=== PATIENT | female | born 1985 | race Caucasian/White ===

== ENCOUNTER 2016-02-20 18:24 | Emergency (ER) | payer OTHER ==
[~2016-02-20 18:24] MED LIST: ADVI200T PO; ANUS2.5C2 PN; AVIATAB PO; COLA100C PO; TYLE167L PO
[2016-02-20] MEDS ORDERED: ASPIRIN 81 MG CHEW TABLET As Ordered ONE (21:01)
[2016-02-20 21:32] LABS: BASO # 0.1 K/mm3 (0.0-0.2); BASO % 1.5 % (0.0-1.0); EOS # 0.2 K/mm3 (0.0-0.50); EOS % 2.3 % (0.0-3.0); LARGE UNSTAINED CELL # 0.1 K/mm3 (0.0-0.4); LARGE UNSTAINED CELL % 1.4 % (0.0-4.0); LYMPH # 1.7 K/mm3 (1.5-4.5); LYMPH % 21.7 % (24.0-44.0); MEAN CORPUSCULAR HEMOGLOBIN 29.6 pg (27.0-33.0); MEAN CORPUSCULAR HGB CONC 33.9 g/dl (32.0-36.5); MEAN CORPUSCULAR VOLUME 87.5 fl (80.0-96.0); MONO # 0.3 K/mm3 (0.0-0.8); MONO % 4.5 % (0.0-5.0); NEUTROPHILS # 5.1 K/mm3 (1.8-7.7); NEUTROPHILS % 68.5 % (36.0-66.0); PLATELET COUNT, AUTOMATED 217 k/mm3 (150-450); RED CELL DISTRIBUTION WIDTH 12.7 % (11.5-14.5); WHITE BLOOD COUNT 7.5 K/mm3 (4.0-10.0)
[2016-02-20 22:23] LABS: ANION GAP 8 MEQ/L (8-16); BLOOD UREA NITROGEN 13 MG/DL (7-18); CALCIUM LEVEL 9.2 MG/DL (8.5-10.1); CARBON DIOXIDE LEVEL 27 MEQ/L (21-32); CHLORIDE LEVEL 108 MEQ/L (98-107); GLOMERULAR FILTRATION RATE > 60.0 (>60); GLUCOSE, FASTING 100 MG/DL (70-105); SODIUM LEVEL 143 MEQ/L (136-145)
--- NOTE | 2016-02-20 22:55 | EDDOCDS ---
Physician Documentation [facility] Name: Angelique Carrillo Age: 30 yrs Sex: Female : 1985 Arrival Date: 02/20/2016 Time: 18:24 Bed 7 Private MD: Kimberly Díaz Disposition: 02/20/16 22:32 Discharged to Home/Self Care. Impression: Gastro-esophageal reflux disease, Radiculopathy, cervical region. - Condition is Stable. - Discharge Instructions: Cervical Radiculopathy, Gastroesophageal Reflux Disease, Adult. - Prescriptions for Prilosec 20 mg Oral Capsule - take 1 capsule by ORAL route once daily; 10 capsule. - Medication Reconciliation, Local Pharmacy Hours form. - Follow up: Kimberly Díaz; When: 4 - 5 days; Reason: Recheck today's complaints, Continuance of care. - Problem is an ongoing problem. - Symptoms are unchanged. Historical: - Allergies: Augmentin; - Home Meds: 1. Macrobid 100 mg Oral cap 1 cap every 12 hours 2. BCP once daily - PMHx: none; - PSHx: Tonsillectomy; - Social history: Smoking status: Patient states was never smoker of tobacco. No barriers to communication noted, The patient speaks fluent Comoran, Speaks appropriately for age. - Family history: Not pertinent. - : The pt / caregiver states he / she is not on anticoagulants. Home medication list is obtained from the patient. - Exposure Risk Screening:: None identified. 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 10 in. (177.80 cm); Pain 4/10; 21:00 BP 163 / 78 (auto/); jp6 21:01 Pulse 76 MON; Pulse Ox 97% ; jp6 21:14 BP 157 / 79 (auto/); jp6 21:14 Pulse 78 MON; Pulse Ox 97% ; jp6 21:29 BP 167 / 78 (auto/); jp6 21:29 Pulse 70 MON; Pulse Ox 98% ; jp6 21:44 BP 167 / 100 (auto/); jp6 21:44 Pulse 74 MON; Pulse Ox 97% ; jp6 21:59 BP 165 / 90 (auto/); jp6 21:59 Pulse 74 MON; Pulse Ox 97% ; jp6 22:14 BP 160 / 74 (auto/); jp6 22:14 Pulse 72 MON; Pulse Ox 98% ; jp6 22:26 Pulse 78 MON; Pulse Ox 97% ; jp6 22:41 BP 142 / 80 (auto/); jp6 18:25 Body Mass Index 30.85 (97.52 kg, 177.80 cm) dem1 MDM: 18:31 ECG WITH READING ER PHYS+CARDIAG ordered. EDMS 20:39 Aspirin Chewable Tablet 324 mg PO once ordered. ke 20:39 Proctologist/Pulse Ox/q 30 min VS ordered. ke 20:39 IV Saline Lock ordered. ke 20:39 Rhythm Strip to chart ordered. ke 20:40 Basic Metabolic Profile Ordered. EDMS 20:40 CBC with Diff Ordered. EDMS 20:40 Cardiac Injury Profile Ordered. EDMS 20:40 Troponin Ordered. EDMS 20:41 Chest, 2 View (pa\E\lat) Ordered. EDMS 20:56 Financial registration complete. zo 21:15 [facility] Payment Agreement was scanned into [employer] and attached to record. zo 22:09 CBC with Diff Reviewed. ke 22:30 Basic Metabolic Profile Reviewed. ke 22:30 Cardiac Injury Profile Reviewed. ke 22:30 Troponin Reviewed. ke Administered Medications: 21:15 Drug: Aspirin 324 mg [aspirin 81 mg chewable tablet (4 tabs)] Route: PO; jp6 Signatures: Dispatcher [employer] EDMS Jose Wilder, Chantel Ken,RN RN kr3 Javier Garrison Jessica,RN RN jp6 The chart was reviewed and I authenticate all verbal orders and agree with the evaluation and treatment provided.Attachments: 21:15 [facility] zo MTDD
--- NOTE | 2016-02-20 22:56 | EDDOCDS ---
Nurse's Notes [facility] Name: Angelique Carrillo Age: 30 yrs Sex: Female : 1985 Arrival Date: 02/20/2016 Time: 18:24 Bed 7 Private MD: Kimberly Díaz Diagnosis: Gastro-esophageal reflux disease;Radiculopathy, cervical region Presentation: 02/19 18:31 Presenting complaint: Patient states: right arm heaviness since 5PM. Reports kr3 indigestion all day until took Zantac at 2:30. Adult Sepsis Screening: The patient does not have new or worsening altered mentation. Patient's respiratory rate is less than 22. Systolic blood pressure is greater than 100. Patient has a qSOFA score of 0- Negative Sepsis Screen. Suicide/Homicide risk assessment- the patient denies having any suicidal and/or homicidal ideations and does not present with any other emotional, behavioral or mental health complaints. 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 Transition of care: patient was not received from another setting of care. 18:31 Method Of Arrival: Walkin/Carried/Asstd kr3 18:43 Acuity: RUT Level 3 kr3 Triage Assessment: 18:33 General: Appears in no apparent distress, comfortable, Behavior is cooperative. Pain: kr3 Location: right arm Pain currently is 4 out of 10 on a pain scale. Quality of pain is described as heavy. Pt Declines HIV testing. Neurological: Level of Consciousness is awake, alert. Respiratory: Respiratory effort is even, unlabored. GI: Reports indigestion on and off all day after eating donuts. Derm: Skin is pink, warm & dry. 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 Macrobid 100 mg Oral cap 1 cap every 12 hours 2. BCP once daily - PMHx: none; - PSHx: Tonsillectomy; - Social history: Smoking status: Patient states was never smoker of tobacco. No barriers to communication noted, The patient speaks fluent Bulgarian, Speaks appropriately for age. - Family history: Not pertinent. - : The pt / caregiver states he / she is not on anticoagulants. Home medication list is obtained from the patient. - Exposure Risk Screening:: None identified. Screenin:29 Screening information is obtained from the patient. Fall risk: No risks identified. ck1 Assistance ADL's: requires no assistance with activities of daily living. Abuse/DV Screen: The patient / caregiver reports he/she is: not in a situation that causes fear, pain or injury. Nutritional screening: No deficits noted. Advance Directives: Currently, there is no health care proxy. home support is adequate. Assessment: 20:28 General: Numbness, tingling and aching to right arm has resolved, denies pain at this ck1 time. No acute distress noted at this time. 21:30 Reassessment: Patient appears in no apparent distress at this time. Patient denies pain jp6 at this time. General: Appears in no apparent distress, comfortable, Behavior is appropriate for age, cooperative. Pain: Denies pain. Neurological: No deficits noted. Level of Consciousness is awake, alert, Oriented to person, place, time. EENT: No deficits noted. Cardiovascular: No deficits noted. Capillary refill < 3 seconds Heart tones S1 S2 present Rhythm is sinus rhythm No ectopy. Respiratory: Airway is patent Respiratory effort is even, unlabored, Respiratory pattern is regular, symmetrical, Breath sounds are clear bilaterally. GI: No deficits noted. : No deficits noted. Derm: Skin is pink, warm & dry. Musculoskeletal: No deficits noted. 21:30 Reassessment: Patient denies pain at this time. Patient states feeling better. Patient jp6 states symptoms have improved. Pain: Denies pain. Cardiovascular: Capillary refill < 3 seconds Rhythm is sinus rhythm No ectopy. Respiratory: Airway is patent Breath sounds are clear bilaterally. Derm: Skin is pink, warm & dry. Vital Signs: 18:25 BP 174 / 85; Pulse 75; Resp 18; Temp 97.8(O); Pulse Ox 100% on R/A; Weight 97.52 kg; dem1 Height 5 ft. 10 in. (177.80 cm); Pain 4/10; 21:00 BP 163 / 78 (auto/); jp6 21:01 Pulse 76 MON; Pulse Ox 97% ; jp6 21:14 BP 157 / 79 (auto/); jp6 21:14 Pulse 78 MON; Pulse Ox 97% ; jp6 21:29 BP 167 / 78 (auto/); jp6 21:29 Pulse 70 MON; Pulse Ox 98% ; jp6 21:44 BP 167 / 100 (auto/); jp6 21:44 Pulse 74 MON; Pulse Ox 97% ; jp6 21:59 BP 165 / 90 (auto/); jp6 21:59 Pulse 74 MON; Pulse Ox 97% ; jp6 22:14 BP 160 / 74 (auto/); jp6 22:14 Pulse 72 MON; Pulse Ox 98% ; jp6 22:26 Pulse 78 MON; Pulse Ox 97% ; jp6 22:41 BP 142 / 80 (auto/); jp6 18:25 Body Mass Index 30.85 (97.52 kg, 177.80 cm) [facility] Vitals: 18:25 Log In Time: February 20, 2016 at 18:23. RN notified that patient meets Red Flag [facility] criteria. ED Course: 18:25 Patient visited by Hernán Cruz. dem1 18:25 Kimberly Díaz is Private Physician. dem1 18:25 Patient moved to Waiting dem1 18:29 Patient moved to Pre RCE dem1 18:43 Triage Initiated kr3 19:23 EKG done. (by ED staff). Reviewed by Carol Ann Arias MD. rn1 20:28 Patient visited by Fauzia Pereyra,JOSE. ck1 20:28 Patient moved to Triage 3 ck1 20:29 Mg Woodall DO is Attending Physician. cs11 20:29 Patient visited by Mg Woodall DO. cs11 20:29 Jose Wilder FNP is PHCP. ke 20:29 Patient visited by Jose Wilder FNP. ke 20:29 Patient moved to 7 jmb 20:47 Jazmin Bryant,RN is Primary Nurse. jp6 21:01 Patient visited by Jose Wilder FNP. ke 21:15 [facility] Payment Agreement was scanned into [employer] and attached to record. zo 21:28 Patient visited by Jose Wilder FNP. ke 21:56 Patient visited by Jose Wilder FNP. ke 22:19 Patient visited by Jose Wilder FNP. ke 22:26 The patient / caregiver is instructed regarding the plan of care and ED course. Cardiac jp6 monitor on. Pulse ox on. NIBP on. 22:26 Inserted saline lock: 20 gauge in right antecubital area and blood collected. No jp6 procedures done that require assistance. 22:26 Discontinued lock bleeding controlled, pressure dressing applied, No redness/swelling jp6 at site. 22:31 Kimberly Díaz is Referral Physician. ke Administered Medications: 21:15 Drug: Aspirin 324 mg [aspirin 81 mg chewable tablet (4 tabs)] Route: PO; jp6 Order Results: Lab Order: Basic Metabolic Profile; SPEC'M 02/20/16 21:50 Test: GLUCOSE, FASTING; Value: 100; Range: 70-105; Units: MG/DL; Status: F Test: BLOOD UREA NITROGEN; Value: 13; Range: 7-18; Units: MG/DL; Status: F Test: CREATININE FOR GFR; Value: 0.80; Range: 0.55-1.02; Units: MG/DL; Status: F Test: GLOMERULAR FILTRATION RATE; Value: > 60.0; Range: >60; Status: F Test: SODIUM LEVEL; Value: 143; Range: 136-145; Units: MEQ/L; Status: F Test: POTASSIUM SERUM; Value: 4.0; Range: 3.5-5.1; Units: MEQ/L; Status: F Test: CHLORIDE LEVEL; Value: 108; Range: 98-107; Abnormal: Above high normal; Units: MEQ/L; Status: F Test: CARBON DIOXIDE LEVEL; Value: 27; Range: 21-32; Units: MEQ/L; Status: F Test: ANION GAP; Value: 8; Range: 8-16; Units: MEQ/L; Status: F Test: CALCIUM LEVEL; Value: 9.2; Range: 8.5-10.1; Units: MG/DL; Status: F Test Note: ; Units are mL/min/1.73 m2 Chronic Kidney Disease Staging per NKF: Stage I & II GFR >=60 Normal to Mildly Decreased Stage III GFR 30-59 Moderately Decreased Stage IV GFR 15-29 Severely Decreased Stage V GFR <15 Very Little GFR Left ESRD GFR <15 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 Lab Order: CBC with Diff; SPEC'M 02/20/16 21:14 Test: WHITE BLOOD COUNT; Value: 7.5; Range: 4.0-10.0; Units: K/mm3; Status: F Test: RED BLOOD COUNT; Value: 4.75; Range: 4.00-5.40; Units: M/mm3; Status: F Test: HEMOGLOBIN; Value: 14.1; Range: 12.0-16.0; Units: g/dl; Status: F Test: HEMATOCRIT; Value: 41.6; Range: 36.0-47.0; Units: %; Status: F Test: MEAN CORPUSCULAR VOLUME; Value: 87.5; Range: 80.0-96.0; Units: fl; Status: F Test: MEAN CORPUSCULAR HEMOGLOBIN; Value: 29.6; Range: 27.0-33.0; Units: pg; Status: F Test: MEAN CORPUSCULAR HGB CONC; Value: 33.9; Range: 32.0-36.5; Units: g/dl; Status: F Test: RED CELL DISTRIBUTION WIDTH; Value: 12.7; Range: 11.5-14.5; Units: %; Status: F Test: PLATELET COUNT, AUTOMATED; Value: 217; Range: 150-450; Units: k/mm3; Status: F Test: NEUTROPHILS %; Value: 68.5; Range: 36.0-66.0; Abnormal: Above high normal; Units: %; Status: F Test: LYMPH %; Value: 21.7; Range: 24.0-44.0; Abnormal: Below low normal; Units: %; Status: F Test: MONO %; Value: 4.5; Range: 0.0-5.0; Units: %; Status: F Test: EOS %; Value: 2.3; Range: 0.0-3.0; Units: %; Status: F Test: BASO %; Value: 1.5; Range: 0.0-1.0; Abnormal: Above high normal; Units: %; Status: F Test: LARGE UNSTAINED CELL %; Value: 1.4; Range: 0.0-4.0; Units: %; Status: F Test: NEUTROPHILS #; Value: 5.1; Range: 1.8-7.7; Units: K/mm3; Status: F Test: LYMPH #; Value: 1.7; Range: 1.5-4.5; Units: K/mm3; Status: F Test: MONO #; Value: 0.3; Range: 0.0-0.8; Units: K/mm3; Status: F Test: EOS #; Value: 0.2; Range: 0.0-0.50; Units: K/mm3; Status: F Test: BASO #; Value: 0.1; Range: 0.0-0.2; Units: K/mm3; Status: F Test: LARGE UNSTAINED CELL #; Value: 0.1; Range: 0.0-0.4; Units: K/mm3; Status: F Lab Order: Cardiac Injury Profile; SPEC'M 02/20/16 21:50 Test: CPK CREATINE PHOSPHOKINASE; Value: 67; Range: 26-192; Units: U/L; Status: F Test: CK-MB VALUE MASS; Value: 1.0; Range: 0.0-3.6; Units: NG/ML; Status: F Test: MB/CK RELATIVE INDEX; Value: 1.49; Range: < OR =4; Status: F Test Note: ; DIAGNOSIS CRITERIA MMB ng/ml Relative Index (RI) NON-AMI < or = 5 N/A [place] > 5 < or = 4 AMI > 5 > 4 Lab Order: Troponin; SPEC'M 02/20/16 21:50 Test: TROPONIN I; Value: < 0.02; Range: < 0.10; Units: NG/ML; Status: F Test Note: ; Troponin I Reference Interval for Preclick LOCI: 99th Percentile= 0.00-0.045 ng/ml Risk Stratification: <= 0.10 ng/ml Decreased Risk for Adverse Clinical Events. 0.10-1.50 ng/ml Increased Risk for Adverse Clinical Events. Evaluation of additional criterion and/or repeat testing in 2-6 hours is suggested to rule out myocardial damage. >= 1.50 ng/ml Indicative of Myocardial Injury. Outcome: 22:26 Discharge Assessment: Patient patient administered narcotics - no. The following High jp6 Risk Discharge criteria are identified: None. Discharged to home ambulatory, with parent. Admitted. Condition: good. Discharge instructions given to patient, Instructed on discharge instructions, follow up and referral plans. medication usage, Demonstrated understanding of instructions, medications, Pt was receptive of discharge instructions/ teaching. Prescriptions given X 1. No special radiology studies were completed. Property sent home with patient. 22:32 Discharge ordered by Provider. ke 22:54 Patient left the ED. jp6 Signatures: Jose Wilder, CHILD CARE COOK CHILD CARE COOK Fauzia Headley,RN RN ck1 Chantel Banks,RN RN kr3 Javier Garrison Demeishia dem1 Mg Woodall, DO cs11 Giacomo Santana,RN RN ishaanb Marcio Paez rn1 Jazmin Bryant RN RN jp6 MTDD
--- NOTE | 2016-02-20 23:08 | REP ---
Clinical: Chest pain . Comparison: None . Technique: PA and lateral. Findings: The mediastinum and cardiac silhouette are normal. The lung green are clear and without acute consolidation, effusion, or pneumothorax. The skeletal structures are intact and normal. Impression: 1. No acute cardiopulmonary process. Signed by Cj Mata MD 02/20/2016 10:59 P
--- NOTE | 2016-02-22 08:21 | ECGEPIP ---
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
--- NOTE | 2016-02-22 23:56 | EDDOCDS ---
Physician Documentation [facility] Name: Angelique Carrillo Age: 30 yrs Sex: Female : 1985 Arrival Date: 02/20/2016 Time: 18:24 Bed 7 Private MD: Kimberly Díaz Disposition: 02/20/16 22:32 Discharged to Home/Self Care. Impression: Gastro-esophageal reflux disease, Radiculopathy, cervical region. - Condition is Stable. - Discharge Instructions: Cervical Radiculopathy, Gastroesophageal Reflux Disease, Adult. - Prescriptions for Prilosec 20 mg Oral Capsule - take 1 capsule by ORAL route once daily; 10 capsule. - Medication Reconciliation, Local Pharmacy Hours form. - Follow up: Kimberly Díaz; When: 4 - 5 days; Reason: Recheck today's complaints, Continuance of care. - Problem is an ongoing problem. - Symptoms are unchanged. Historical: - Allergies: Augmentin; - Home Meds: 1. Macrobid 100 mg Oral cap 1 cap every 12 hours 2. BCP once daily - PMHx: none; - PSHx: Tonsillectomy; - Social history: Smoking status: Patient states was never smoker of tobacco. No barriers to communication noted, The patient speaks fluent Greenlandic, Speaks appropriately for age. - Family history: Not pertinent. - : The pt / caregiver states he / she is not on anticoagulants. Home medication list is obtained from the patient. - Exposure Risk Screening:: None identified. 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 10 in. (177.80 cm); Pain 4/10; 21:00 BP 163 / 78 (auto/); jp6 21:01 Pulse 76 MON; Pulse Ox 97% ; jp6 21:14 BP 157 / 79 (auto/); jp6 21:14 Pulse 78 MON; Pulse Ox 97% ; jp6 21:29 BP 167 / 78 (auto/); jp6 21:29 Pulse 70 MON; Pulse Ox 98% ; jp6 21:44 BP 167 / 100 (auto/); jp6 21:44 Pulse 74 MON; Pulse Ox 97% ; jp6 21:59 BP 165 / 90 (auto/); jp6 21:59 Pulse 74 MON; Pulse Ox 97% ; jp6 22:14 BP 160 / 74 (auto/); jp6 22:14 Pulse 72 MON; Pulse Ox 98% ; jp6 22:26 Pulse 78 MON; Pulse Ox 97% ; jp6 22:41 BP 142 / 80 (auto/); jp6 18:25 Body Mass Index 30.85 (97.52 kg, 177.80 cm) dem1 MDM: 18:31 ECG WITH READING ER PHYS+CARDIAG ordered. EDMS 20:39 Aspirin Chewable Tablet 324 mg PO once ordered. ke 20:39 Compensation Administrator/Pulse Ox/q 30 min VS ordered. ke 20:39 IV Saline Lock ordered. ke 20:39 Rhythm Strip to chart ordered. ke 20:40 Basic Metabolic Profile Ordered. EDMS 20:40 CBC with Diff Ordered. EDMS 20:40 Cardiac Injury Profile Ordered. EDMS 20:40 Troponin Ordered. EDMS 20:41 Chest, 2 View (pa\E\lat) Ordered. EDMS 20:56 Financial registration complete. zo 21:15 [facility] Payment Agreement was scanned into [employer] and attached to record. zo 22:09 CBC with Diff Reviewed. ke 22:30 Basic Metabolic Profile Reviewed. ke 22:30 Cardiac Injury Profile Reviewed. ke 22:30 Troponin Reviewed. 02/20 07:58 T-Sheet-- Draft Copy was scanned into [employer] and attached to record. gb 13:01 ECG/EKG was scanned into [employer] and attached to record. gb 13:01 Trend VS was scanned into [employer] and attached to record. gb Administered Medications: 02/19 21:15 Drug: Aspirin 324 mg [aspirin 81 mg chewable tablet (4 tabs)] Route: PO; jp6 Signatures: Dispatcher [employer] EDMS Breanna Junior, Reg Reg Jose Guzman, MEDICAL ECONOMICS CONSULTANT MEDICAL ECONOMICS CONSULTANT Chantel Yuan,RN RN kr3 Javier Garrison Jessica,RN RN jp6 The chart was reviewed and I authenticate all verbal orders and agree with the evaluation and treatment provided.Attachments: 21:15 [facility] Payment Agreement zo 02/20 07:58 T-Sheet-- Draft Copy gb 13:01 ECG/EKG gb Chart Complete MTDD
--- NOTE | 2016-02-22 23:56 | EDDOCDS ---
Physician Documentation [facility] Name: Angelique Carrillo Age: 30 yrs Sex: Female : 1985 Arrival Date: 02/20/2016 Time: 18:24 Bed 7 Private MD: Kimberly Díaz Disposition: 02/20/16 22:32 Discharged to Home/Self Care. Impression: Gastro-esophageal reflux disease, Radiculopathy, cervical region. - Condition is Stable. - Discharge Instructions: Cervical Radiculopathy, Gastroesophageal Reflux Disease, Adult. - Prescriptions for Prilosec 20 mg Oral Capsule - take 1 capsule by ORAL route once daily; 10 capsule. - Medication Reconciliation, Local Pharmacy Hours form. - Follow up: Kimberly Díaz; When: 4 - 5 days; Reason: Recheck today's complaints, Continuance of care. - Problem is an ongoing problem. - Symptoms are unchanged. Historical: - Allergies: Augmentin; - Home Meds: 1. Macrobid 100 mg Oral cap 1 cap every 12 hours 2. BCP once daily - PMHx: none; - PSHx: Tonsillectomy; - Social history: Smoking status: Patient states was never smoker of tobacco. No barriers to communication noted, The patient speaks fluent Ethiopian, Speaks appropriately for age. - Family history: Not pertinent. - : The pt / caregiver states he / she is not on anticoagulants. Home medication list is obtained from the patient. - Exposure Risk Screening:: None identified. 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 10 in. (177.80 cm); Pain 4/10; 21:00 BP 163 / 78 (auto/); jp6 21:01 Pulse 76 MON; Pulse Ox 97% ; jp6 21:14 BP 157 / 79 (auto/); jp6 21:14 Pulse 78 MON; Pulse Ox 97% ; jp6 21:29 BP 167 / 78 (auto/); jp6 21:29 Pulse 70 MON; Pulse Ox 98% ; jp6 21:44 BP 167 / 100 (auto/); jp6 21:44 Pulse 74 MON; Pulse Ox 97% ; jp6 21:59 BP 165 / 90 (auto/); jp6 21:59 Pulse 74 MON; Pulse Ox 97% ; jp6 22:14 BP 160 / 74 (auto/); jp6 22:14 Pulse 72 MON; Pulse Ox 98% ; jp6 22:26 Pulse 78 MON; Pulse Ox 97% ; jp6 22:41 BP 142 / 80 (auto/); jp6 18:25 Body Mass Index 30.85 (97.52 kg, 177.80 cm) dem1 MDM: 18:31 ECG WITH READING ER PHYS+CARDIAG ordered. EDMS 20:39 Aspirin Chewable Tablet 324 mg PO once ordered. ke 20:39 [employer] Clerk/Pulse Ox/q 30 min VS ordered. ke 20:39 IV Saline Lock ordered. ke 20:39 Rhythm Strip to chart ordered. ke 20:40 Basic Metabolic Profile Ordered. EDMS 20:40 CBC with Diff Ordered. EDMS 20:40 Cardiac Injury Profile Ordered. EDMS 20:40 Troponin Ordered. EDMS 20:41 Chest, 2 View (pa\E\lat) Ordered. EDMS 20:56 Financial registration complete. zo 21:15 [facility] Payment Agreement was scanned into [employer] and attached to record. zo 22:09 CBC with Diff Reviewed. ke 22:30 Basic Metabolic Profile Reviewed. ke 22:30 Cardiac Injury Profile Reviewed. ke 22:30 Troponin Reviewed. 02/20 07:58 T-Sheet-- Draft Copy was scanned into [employer] and attached to record. gb 13:01 ECG/EKG was scanned into [employer] and attached to record. gb 13:01 Trend VS was scanned into [employer] and attached to record. gb Administered Medications: 02/19 21:15 Drug: Aspirin 324 mg [aspirin 81 mg chewable tablet (4 tabs)] Route: PO; jp6 Signatures: Dispatcher [employer] EDMS Breanna Junior, Reg Reg Jose Guzman, JUICE SCALEMAN JUICE SCALEMAN Chantel Yuan,RN RN kr3 Javier Garrison Jessica,RN RN jp6 The chart was reviewed and I authenticate all verbal orders and agree with the evaluation and treatment provided.Attachments: 21:15 [facility] Payment Agreement zo 02/20 07:58 T-Sheet-- Draft Copy gb 13:01 ECG/EKG gb Chart Complete MTDD
--- NOTE | 2016-02-22 23:56 | EDDOCDS ---
Nurse's Notes [facility] Name: Angelique Stewart Age: 30 yrs Sex: Female : 1985 Arrival Date: 02/20/2016 Time: 18:24 Bed 7 Private MD: Kimberly Díaz Diagnosis: Gastro-esophageal reflux disease;Radiculopathy, cervical region Presentation: 02/19 18:31 Presenting complaint: Patient states: right arm heaviness since 5PM. Reports kr3 indigestion all day until took Zantac at 2:30. Adult Sepsis Screening: The patient does not have new or worsening altered mentation. Patient's respiratory rate is less than 22. Systolic blood pressure is greater than 100. Patient has a qSOFA score of 0- Negative Sepsis Screen. Suicide/Homicide risk assessment- the patient denies having any suicidal and/or homicidal ideations and does not present with any other emotional, behavioral or mental health complaints. Status: Patient is not a environmental field services technician or dependent. Transition of care: patient was not received from another setting of care. 18:31 Method Of Arrival: Walkin/Carried/Asstd kr3 18:43 Acuity: RUT Level 3 kr3 Triage Assessment: 18:33 General: Appears in no apparent distress, comfortable, Behavior is cooperative. Pain: kr3 Location: right arm Pain currently is 4 out of 10 on a pain scale. Quality of pain is described as heavy. Pt Declines HIV testing. Neurological: Level of Consciousness is awake, alert. Respiratory: Respiratory effort is even, unlabored. GI: Reports indigestion on and off all day after eating donuts. Derm: Skin is pink, warm & dry. NEONATAL NURSE: 18:33 LMP 02/04/2016 kr3 Historical: - Allergies: Augmentin; - Home Meds: 1. Macrobid 100 mg Oral cap 1 cap every 12 hours 2. BCP once daily - PMHx: none; - PSHx: Tonsillectomy; - Social history: Smoking status: Patient states was never smoker of tobacco. No barriers to communication noted, The patient speaks fluent Serbian, Speaks appropriately for age. - Family history: Not pertinent. - : The pt / caregiver states he / she is not on anticoagulants. Home medication list is obtained from the patient. - Exposure Risk Screening:: None identified. Screenin:29 Screening information is obtained from the patient. Fall risk: No risks identified. ck1 Assistance ADL's: requires no assistance with activities of daily living. Abuse/DV Screen: The patient / caregiver reports he/she is: not in a situation that causes fear, pain or injury. Nutritional screening: No deficits noted. Advance Directives: Currently, there is no health care proxy. home support is adequate. Assessment: 20:28 General: Numbness, tingling and aching to right arm has resolved, denies pain at this ck1 time. No acute distress noted at this time. 21:30 Reassessment: Patient appears in no apparent distress at this time. Patient denies pain jp6 at this time. General: Appears in no apparent distress, comfortable, Behavior is appropriate for age, cooperative. Pain: Denies pain. Neurological: No deficits noted. Level of Consciousness is awake, alert, Oriented to person, place, time. EENT: No deficits noted. Cardiovascular: No deficits noted. Capillary refill < 3 seconds Heart tones S1 S2 present Rhythm is sinus rhythm No ectopy. Respiratory: Airway is patent Respiratory effort is even, unlabored, Respiratory pattern is regular, symmetrical, Breath sounds are clear bilaterally. GI: No deficits noted. : No deficits noted. Derm: Skin is pink, warm & dry. Musculoskeletal: No deficits noted. 21:30 Reassessment: Patient denies pain at this time. Patient states feeling better. Patient jp6 states symptoms have improved. Pain: Denies pain. Cardiovascular: Capillary refill < 3 seconds Rhythm is sinus rhythm No ectopy. Respiratory: Airway is patent Breath sounds are clear bilaterally. Derm: Skin is pink, warm & dry. Vital Signs: 18:25 BP 174 / 85; Pulse 75; Resp 18; Temp 97.8(O); Pulse Ox 100% on R/A; Weight 97.52 kg; dem1 Height 5 ft. 10 in. (177.80 cm); Pain 4/10; 21:00 BP 163 / 78 (auto/); jp6 21:01 Pulse 76 MON; Pulse Ox 97% ; jp6 21:14 BP 157 / 79 (auto/); jp6 21:14 Pulse 78 MON; Pulse Ox 97% ; jp6 21:29 BP 167 / 78 (auto/); jp6 21:29 Pulse 70 MON; Pulse Ox 98% ; jp6 21:44 BP 167 / 100 (auto/); jp6 21:44 Pulse 74 MON; Pulse Ox 97% ; jp6 21:59 BP 165 / 90 (auto/); jp6 21:59 Pulse 74 MON; Pulse Ox 97% ; jp6 22:14 BP 160 / 74 (auto/); jp6 22:14 Pulse 72 MON; Pulse Ox 98% ; jp6 22:26 Pulse 78 MON; Pulse Ox 97% ; jp6 22:41 BP 142 / 80 (auto/); jp6 18:25 Body Mass Index 30.85 (97.52 kg, 177.80 cm) [facility] Vitals: 18:25 Log In Time: February 20, 2016 at 18:23. RN notified that patient meets [facility] criteria. ED Course: 18:25 Patient visited by Hernán Cruz. dem1 18:25 Kimberly Díaz is Private Physician. dem1 18:25 Patient moved to Waiting dem1 18:29 Patient moved to Pre RCE dem1 18:43 Triage Initiated kr3 19:23 EKG done. (by ED staff). Reviewed by Carol Ann Arias MD. rn1 20:28 Patient visited by Fauzia Pereyra,JOSE. ck1 20:28 Patient moved to Triage 3 ck1 20:29 Mg Woodall DO is Attending Physician. cs11 20:29 Patient visited by Mg Woodall DO. cs11 20:29 Jose Wilder FNP is PHCP. ke 20:29 Patient visited by Jose Wilder FNP. ke 20:29 Patient moved to 7 jmb 20:47 Jazmin Bryant,RN is Primary Nurse. jp6 21:01 Patient visited by Jose Wilder FNP. ke 21:15 [facility] Payment Agreement was scanned into [employer] and attached to record. zo 21:28 Patient visited by Jose Wilder FNP. ke 21:56 Patient visited by Jose Wilder FNP. ke 22:19 Patient visited by Jose Wilder FNP. ke 22:26 The patient / caregiver is instructed regarding the plan of care and ED course. Cardiac jp6 monitor on. Pulse ox on. NIBP on. 22:26 Inserted saline lock: 20 gauge in right antecubital area and blood collected. No jp6 procedures done that require assistance. 22:26 Discontinued lock bleeding controlled, pressure dressing applied, No redness/swelling jp6 at site. 22:31 Kimberly Díaz is Referral Physician. ke 23:49 Chest, 2 View (pa\E\lat) Returned. EDMS 02/20 07:58 T-Sheet-- Draft Copy was scanned into [employer] and attached to record. gb 13:01 ECG/EKG was scanned into [employer] and attached to record. gb 13:01 Trend VS was scanned into [employer] and attached to record. gb 02/21 08:38 EKG-ADULT Returned. EDMS Administered Medications: 02/19 21:15 Drug: Aspirin 324 mg [aspirin 81 mg chewable tablet (4 tabs)] Route: PO; jp6 Attachments: 13:01 Trend VS gb Order Results: Lab Order: Basic Metabolic Profile; SPEC'M 02/20/16 21:50 Test: GLUCOSE, FASTING; Value: 100; Range: 70-105; Units: MG/DL; Status: F Test: BLOOD UREA NITROGEN; Value: 13; Range: 7-18; Units: MG/DL; Status: F Test: CREATININE FOR GFR; Value: 0.80; Range: 0.55-1.02; Units: MG/DL; Status: F Test: GLOMERULAR FILTRATION RATE; Value: > 60.0; Range: >60; Status: F Test: SODIUM LEVEL; Value: 143; Range: 136-145; Units: MEQ/L; Status: F Test: POTASSIUM SERUM; Value: 4.0; Range: 3.5-5.1; Units: MEQ/L; Status: F Test: CHLORIDE LEVEL; Value: 108; Range: 98-107; Abnormal: Above high normal; Units: MEQ/L; Status: F Test: CARBON DIOXIDE LEVEL; Value: 27; Range: 21-32; Units: MEQ/L; Status: F Test: ANION GAP; Value: 8; Range: 8-16; Units: MEQ/L; Status: F Test: CALCIUM LEVEL; Value: 9.2; Range: 8.5-10.1; Units: MG/DL; Status: F Test Note: ; Units are mL/min/1.73 m2 Chronic Kidney Disease Staging per NKF: Stage I & II GFR >=60 Normal to Mildly Decreased Stage III GFR 30-59 Moderately Decreased Stage IV GFR 15-29 Severely Decreased Stage V GFR <15 Very Little GFR Left ESRD GFR <15 on MOTORS 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 Lab Order: CBC with Diff; SPEC'M 02/20/16 21:14 Test: WHITE BLOOD COUNT; Value: 7.5; Range: 4.0-10.0; Units: K/mm3; Status: F Test: RED BLOOD COUNT; Value: 4.75; Range: 4.00-5.40; Units: M/mm3; Status: F Test: HEMOGLOBIN; Value: 14.1; Range: 12.0-16.0; Units: g/dl; Status: F Test: HEMATOCRIT; Value: 41.6; Range: 36.0-47.0; Units: %; Status: F Test: MEAN CORPUSCULAR VOLUME; Value: 87.5; Range: 80.0-96.0; Units: fl; Status: F Test: MEAN CORPUSCULAR HEMOGLOBIN; Value: 29.6; Range: 27.0-33.0; Units: pg; Status: F Test: MEAN CORPUSCULAR HGB CONC; Value: 33.9; Range: 32.0-36.5; Units: g/dl; Status: F Test: RED CELL DISTRIBUTION WIDTH; Value: 12.7; Range: 11.5-14.5; Units: %; Status: F Test: PLATELET COUNT, AUTOMATED; Value: 217; Range: 150-450; Units: k/mm3; Status: F Test: NEUTROPHILS %; Value: 68.5; Range: 36.0-66.0; Abnormal: Above high normal; Units: %; Status: F Test: LYMPH %; Value: 21.7; Range: 24.0-44.0; Abnormal: Below low normal; Units: %; Status: F Test: MONO %; Value: 4.5; Range: 0.0-5.0; Units: %; Status: F Test: EOS %; Value: 2.3; Range: 0.0-3.0; Units: %; Status: F Test: BASO %; Value: 1.5; Range: 0.0-1.0; Abnormal: Above high normal; Units: %; Status: F Test: LARGE UNSTAINED CELL %; Value: 1.4; Range: 0.0-4.0; Units: %; Status: F Test: NEUTROPHILS #; Value: 5.1; Range: 1.8-7.7; Units: K/mm3; Status: F Test: LYMPH #; Value: 1.7; Range: 1.5-4.5; Units: K/mm3; Status: F Test: MONO #; Value: 0.3; Range: 0.0-0.8; Units: K/mm3; Status: F Test: EOS #; Value: 0.2; Range: 0.0-0.50; Units: K/mm3; Status: F Test: BASO #; Value: 0.1; Range: 0.0-0.2; Units: K/mm3; Status: F Test: LARGE UNSTAINED CELL #; Value: 0.1; Range: 0.0-0.4; Units: K/mm3; Status: F Lab Order: Cardiac Injury Profile; SPEC'M 02/20/16 21:50 Test: CPK CREATINE PHOSPHOKINASE; Value: 67; Range: 26-192; Units: U/L; Status: F Test: CK-MB VALUE MASS; Value: 1.0; Range: 0.0-3.6; Units: NG/ML; Status: F Test: MB/CK RELATIVE INDEX; Value: 1.49; Range: < OR =4; Status: F Test Note: ; DIAGNOSIS CRITERIA MMB ng/ml Relative Index (RI) NON-AMI < or = 5 N/A [place] > 5 < or = 4 AMI > 5 > 4 Lab Order: Troponin; SPEC'M 02/20/16 21:50 Test: TROPONIN I; Value: < 0.02; Range: < 0.10; Units: NG/ML; Status: F Test Note: ; Troponin I Reference Interval for Librato LOCI: 99th Percentile= 0.00-0.045 ng/ml Risk Stratification: <= 0.10 ng/ml Decreased Risk for Adverse Clinical Events. 0.10-1.50 ng/ml Increased Risk for Adverse Clinical Events. Evaluation of additional criterion and/or repeat testing in 2-6 hours is suggested to rule out myocardial damage. >= 1.50 ng/ml Indicative of Myocardial Injury. 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 The lung green are clear and; without acute consolidation, effusion, or pneumothorax. The skeletal structures; are intact and normal.; ; Impression:; 1. No acute cardiopulmonary process.; ; ; Signed by; Cj Mata MD 02/20/2016 10:59 P; Outcome: 02/19 22:26 Discharge Assessment: Patient patient administered narcotics - no. The following High jp6 Risk Discharge criteria are identified: None. Discharged to home ambulatory, with parent. Admitted. Condition: good. Discharge instructions given to patient, Instructed on discharge instructions, follow up and referral plans. medication usage, Demonstrated understanding of instructions, medications, Pt was receptive of discharge instructions/ teaching. Prescriptions given X 1. No special radiology studies were completed. Property sent home with patient. 22:32 Discharge ordered by Provider. ke 22:54 Patient left the ED. jp6 Signatures: Dispatcher [employer] EDMS Breanna Junior, Arpit Reg Jose Guzman, AUDOGRAPH OPERATOR AUDOGRAPH OPERATOR Fauzia HeadleyRN RN ck1 Chantel Banks,RN RN kr3 Javier Garrison Demeishia dem1 Schiff, Craig, DO DO cs11 Giacomo Santana,RN RN ishaanb Marcio Paez rn1 Jazmin Bryant RN RN jp6 Chart Complete MTDD
== END 2016-02-20 22:54 | disposition home or self-care (01) ==
LOC: M ED 18:24
DX: K21.9 Gastro-esophageal reflux disease without esophagitis (principal); M54.12 Radiculopathy, cervical region; Z90.89 Acquired absence of other organs; Z79.3 Long term (current) use of hormonal contraceptives; Z79.899 Other long term (current) drug therapy; Z88.1 Allergy status to other antibiotic agents

== ENCOUNTER → 2016-07-29 | Outpatient (REF) | payer OTHER ==
[~2016-07-29] MED LIST changes: -COLA100C PO; +COLA100C3 PO
== END ==
LOC: M LAB REF 16:15
PROVIDERS: ATTEND Surgery
DX: D48.5 Neoplasm of uncertain behavior of skin (principal)

== ENCOUNTER → 2016-09-02 | Outpatient (CLI) | payer OTHER ==
[~2016-09-02] MED LIST changes: +BUSP1TAB PO; +CEFD1CAP8 PO; -COLA100C3 PO; +COLA100C5 PO; +LORA0.5T11 PO; +NAPR500T3 PO; +OMEP10CASR PO
--- NOTE | 2016-09-02 19:37 | REP ---
CERVICAL SPINE COMPLETE: 09/02/2016. Clinical history: Neck pain. Findings: No prior study. The seven views show normal cervical lordosis on the lateral view. Somewhat limited range of motion with flexion, better with extension but overall decreased range of motion which may reflect some degree of spasm. Vertebral body heights and the disc space heights are intact. There is no instability at the C1-2 relationship. No prevertebral swelling, compression deformity or destructive bone lesion. Foramina are ample on the left and show mild encroachment on the right at C3-4. The C1-2 relationships are normal on the open-mouth view. There is no torticollis on the AP view. Impression: 1. Mild foraminal encroachment on the right at C3-4 without other foraminal encroachment. There is no disc space narrowing, compression deformity or destructive lesion. There is limited range of motion but no instability. Signed by Marcelo Mata MD 09/03/2016 10:45 A
== END ==
LOC: M WUC 17:17
PROVIDERS: ATTEND Physician Assistant
DX: M54.2 Cervicalgia (principal)

== ENCOUNTER 2016-11-02 23:09 | Emergency (ER) | payer OTHER ==
[~2016-11-02] VITALS: Ht 175.3 cm; Wt 100.0 kg
[~2016-11-02 23:09] MED LIST changes: -BUSP1TAB PO; -CEFD1CAP8 PO; -LORA0.5T11 PO; -NAPR500T3 PO; -OMEP10CASR PO
[2016-11-02 23:18] VITALS: BP 182/100
[2016-11-02] MEDS ORDERED: OMEP10CASR PO (23:23)
[2016-11-02] MEDS ORDERED: BUSP1TAB PO (23:23)
[2016-11-02] MEDS ORDERED: LORA0.5T11 PO (23:23)
[2016-11-02] MEDS ORDERED: CEFD1CAP8 PO (23:23)
[2016-11-02] MEDS ORDERED: NAPR500T3 PO (23:23)
--- NOTE | 2016-11-03 06:01 | ECGEPIP ---
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
== END 2016-11-03 03:10 | disposition left against medical advice (07) ==
LOC: M ED 23:09
DX: R07.9 Chest pain, unspecified (principal); Z53.29 Procedure and treatment not carried out because of patient's decision for other reasons

== ENCOUNTER 2016-12-27 19:52 | Emergency (ER) | payer OTHER ==
[~2016-12-27] VITALS: Ht 175.3 cm; Wt 92.7 kg
[~2016-12-27 19:52] MED LIST changes: -IBUP-1022 PO; -SUCR1SS PO
[2016-12-27 19:53] VITALS: BP 183/100
[2016-12-27] MEDS ORDERED: AVIATAB PO (20:09)
[2016-12-27] MEDS ORDERED: SUCR1SS PO (20:09)
[2016-12-27] MEDS ORDERED: IBUP-1022 PO (20:32)
== END 2016-12-27 21:00 | disposition home or self-care (01) ==
LOC: M ED 19:52
DX: L04.0 Acute lymphadenitis of face, head and neck (principal); Z79.899 Other long term (current) drug therapy; Z88.0 Allergy status to penicillin

== ENCOUNTER → 2016-12-27 | Outpatient (CLI) | payer OTHER ==
[~2016-12-27] MED LIST changes: +BUSP1TAB PO; +CEFD1CAP8 PO; +IBUP-1022 PO; +LORA0.5T11 PO; +NAPR500T3 PO; +OMEP10CASR PO; +SUCR1SS PO
[2016-12-27 19:07] LABS: BASO % 0.3 % (0.0-1.0); EOS # 0.1 10^3/uL (0.0-0.50); EOS % 0.8 % (0.0-3.0); IMMATURE GRANULOCYTE % 0.3 % (0-0); LYMPH # 2.2 10^3/uL (1.5-4.5); MEAN CORPUSCULAR HEMOGLOBIN 30.4 pg (27.0-33.0); MEAN CORPUSCULAR HGB CONC 32.8 g/dl (32.0-36.5); MEAN CORPUSCULAR VOLUME 92.7 fl (80.0-96.0); MONO # 0.5 10^3/uL (0.0-0.8); MONO % 5.9 % (0.0-5.0); NEUTROPHILS # 5.1 10^3/uL (1.8-7.7); NEUTROPHILS % 64.7 % (36.0-66.0); PLATELET COUNT, AUTOMATED 250 10^3/uL (150-450); RED CELL DISTRIBUTION WIDTH 12.6 % (11.5-14.5); WHITE BLOOD COUNT 7.9 10^3/uL (4.0-10.0)
[2016-12-27 19:22] LABS: FREE T4 0.98 NG/DL (0.76-1.46)
== END ==
LOC: M WUC 13:32
PROVIDERS: ATTEND Physician Assistant
DX: M54.2 Cervicalgia (principal); R22.1 Localized swelling, mass and lump, neck

== ENCOUNTER → 2016-12-28 | Outpatient (CLI) | payer OTHER ==
[~2016-12-28] MED LIST changes: +IBUP-1022 PO; +SUCR1SS PO
--- NOTE | 2016-12-28 09:32 | REP ---
THYROID ULTRASOUND: Real-time sonographic evaluation of thyroid performed. Right lobe measures 4.3 x 1.7 x 1.2 cm and left lobe 3.2 x 1.5 x 1.2 cm. There is a solid-appearing nodule in the left upper pole measuring 9 x 6 x 7 mm. No other cyst or solid nodule is seen bilaterally. IMPRESSION: Subcentimeter nodule left lobe thyroid. Signed by Vinh Caraballo MD 12/28/2016 12:43 P
== END ==
LOC: M RAD 08:55
PROVIDERS: ATTEND Physician Assistant
DX: E04.1 Nontoxic single thyroid nodule (principal)

== ENCOUNTER → 2017-01-14 | Outpatient (REF) | payer OTHER | LOC: M LAB REF 18:53 | PROVIDERS: ATTEND Internal Medicine Endocrinology, Diabetes & Metabolism | DX: E04.1 Nontoxic single thyroid nodule (principal) ==

== ENCOUNTER → 2017-01-27 | Outpatient (REF) | payer OTHER ==
[2017-01-27 09:23] LABS: ALBUMIN 3.5 GM/DL (3.2-5.2); ALBUMIN/GLOBULIN RATIO 1.09 (1.00-1.93); ALKALINE PHOSPHATASE 99 U/L (45-117); ALT/SGPT 12 U/L (12-78); ANION GAP 8 MEQ/L (8-16); AST/SGOT 11 U/L (7-37); BILIRUBIN,TOTAL 0.4 MG/DL (0.2-1.0); BLOOD UREA NITROGEN 12 MG/DL (7-18); CALCIUM LEVEL 8.5 MG/DL (8.5-10.1); CARBON DIOXIDE LEVEL 28 MEQ/L (21-32); CHLORIDE LEVEL 105 MEQ/L (98-107); CHOLESTEROL LEVEL 162 MG/DL (<200); CREATININE FOR GFR 0.76 MG/DL (0.55-1.02); GLOMERULAR FILTRATION RATE > 60.0 (>60); GLUCOSE, FASTING 80 MG/DL (70-105); PERCENT SATURATION 10.8 % (13.2-45.0); SODIUM LEVEL 141 MEQ/L (136-145); TOTAL IRON BINDING CAPACITY 334 UG/DL (250-450); TOTAL PROTEIN 6.7 GM/DL (6.4-8.2); TRIGLYCERIDES LEVEL 85 MG/DL (<150)
== END ==
LOC: M LABDRAW1 08:13
PROVIDERS: ATTEND Family Medicine
DX: D64.9 Anemia, unspecified (principal); R53.83 Other fatigue; K21.9 Gastro-esophageal reflux disease without esophagitis

== ENCOUNTER → 2017-04-24 | Outpatient (REF) | payer OTHER | LOC: M LAB REF 09:21 | DX: J02.9 Acute pharyngitis, unspecified (principal) ==

== ENCOUNTER → 2017-05-12 | Outpatient (REF) | payer OTHER ==
[2017-05-12 12:46] LABS: HEMATOCRIT 42.2 % (36.0-47.0); HEMOGLOBIN 13.7 g/dl (12.0-16.0); MEAN CORPUSCULAR HEMOGLOBIN 29.5 pg (27.0-33.0); MEAN CORPUSCULAR HGB CONC 32.5 g/dl (32.0-36.5); MEAN CORPUSCULAR VOLUME 90.8 fl (80.0-96.0); PLATELET COUNT, AUTOMATED 290 10^3/uL (150-450); RED BLOOD COUNT 4.65 10^6/uL (4.00-5.40); RED CELL DISTRIBUTION WIDTH 12.9 % (11.5-14.5); WHITE BLOOD COUNT 6.1 10^3/uL (4.0-10.0)
[2017-05-12 12:54] LABS: ALBUMIN 3.5 GM/DL (3.2-5.2); ALBUMIN/GLOBULIN RATIO 1.03 (1.00-1.93); ALKALINE PHOSPHATASE 101 U/L (45-117); ALT/SGPT 14 U/L (12-78); ANION GAP 4 MEQ/L (8-16); AST/SGOT 13 U/L (7-37); BILIRUBIN,TOTAL 0.3 MG/DL (0.2-1.0); BLOOD UREA NITROGEN 11 MG/DL (7-18); CALCIUM LEVEL 8.8 MG/DL (8.5-10.1); CARBON DIOXIDE LEVEL 31 MEQ/L (21-32); CHLORIDE LEVEL 106 MEQ/L (98-107); CHOLESTEROL LEVEL 176 MG/DL (<200); CHOLESTEROL RISK RATIO 2.626 (<5); GLOMERULAR FILTRATION RATE > 60.0 (>60); GLUCOSE, FASTING 76 MG/DL (70-100); HDL CHOLESTEROL 67 MG/DL (>40); IRON (FE) 95 UG/DL (50-170); LDL CHOLESTEROL 92.2 MG/DL (<100); NON-HDL-C 109 MG/DL; PERCENT SATURATION 25.3 % (13.2-45.0); POTASSIUM SERUM 4.4 MEQ/L (3.5-5.1); SODIUM LEVEL 141 MEQ/L (136-145); TOTAL IRON BINDING CAPACITY 375 UG/DL (250-450); TOTAL PROTEIN 6.9 GM/DL (6.4-8.2); TRIGLYCERIDES LEVEL 84 MG/DL (<150)
[2017-05-12 13:03] LABS: TOTAL 25(OH) VITAMIN D 73.2 NG/ML (30.0-100.0)
== END ==
LOC: M LABDRAW1 11:48
DX: D64.9 Anemia, unspecified (principal); R53.83 Other fatigue

== ENCOUNTER → 2017-08-11 | Outpatient (CLI) | payer OTHER | LOC: M WUC 17:23 | DX: J31.0 Chronic rhinitis (principal) | CPT/HCPCS: 70220 ==

== ENCOUNTER → 2017-09-15 | Outpatient (REF) | payer OTHER ==
[2017-09-15 14:32] LABS: APPEARANCE, URINE CLEAR (CLEAR); BACTERIA, URINE AUTO 1+ (NEGATIVE); BILIRUBIN, URINE AUTO NEGATIVE (NEGATIVE); BLOOD, URINE BLOOD 1+ (NEGATIVE); COLOR, URINE STRAW (YELLOW); GLUCOSE, URINE (UA) AUTO NEGATIVE (NEGATIVE); KETONE, URINE AUTO NEGATIVE (NEGATIVE); LEUKOCYTE ESTERASE, URINE AUTO NEGATIVE (NEGATIVE); MUCUS, URINE SMALL (NEGATIVE); NITRITE, URINE AUTO NEGATIVE (NEGATIVE); PROTEIN, URINE AUTO NEGATIVE (NEGATIVE); RBC, URINE AUTO 1 /HPF (0-3); SPECIFIC GRAVITY URINE AUTO 1.005 (1.002-1.035); SQUAMOUS EPITHELIAL CELL UR AU 1 /HPF (0-6); UROBILINOGEN, URINE AUTO 0.2 mg/dL (0.0-2.0); WBC, URINE AUTO 1 /HPF (0-3)
== END ==
LOC: M LAB REF 14:10
DX: N39.0 Urinary tract infection, site not specified (principal)

== ENCOUNTER → 2017-09-29 | Outpatient (REF) | payer OTHER ==
[2017-09-29 21:54] LABS: APPEARANCE, URINE CLEAR (CLEAR); BACTERIA, URINE AUTO NEGATIVE (NEGATIVE); BILIRUBIN, URINE AUTO NEGATIVE (NEGATIVE); BLOOD, URINE BLOOD 1+ (NEGATIVE); COLOR, URINE YELLOW (YELLOW); GLUCOSE, URINE (UA) AUTO NEGATIVE (NEGATIVE); KETONE, URINE AUTO NEGATIVE (NEGATIVE); LEUKOCYTE ESTERASE, URINE AUTO NEGATIVE (NEGATIVE); MUCUS, URINE SMALL (NEGATIVE); NITRITE, URINE AUTO NEGATIVE (NEGATIVE); PROTEIN, URINE AUTO NEGATIVE (NEGATIVE); RBC, URINE AUTO 1 /HPF (0-3); SPECIFIC GRAVITY URINE AUTO 1.012 (1.002-1.035); SQUAMOUS EPITHELIAL CELL UR AU 4 /HPF (0-6); UROBILINOGEN, URINE AUTO 0.2 mg/dL (0.0-2.0); WBC, URINE AUTO 1 /HPF (0-3)
== END ==
LOC: M LAB REF 16:17
DX: N39.0 Urinary tract infection, site not specified (principal)

== ENCOUNTER 2017-10-16 18:30 | Emergency (ER) | payer OTHER ==
[2017-10-16 19:17] LABS: BASO # 0.1 10^3/uL (0.0-0.2); BASO % 0.7 % (0.0-1.0); EOS # 0.1 10^3/uL (0.0-0.50); HEMATOCRIT 42.6 % (36.0-47.0); HEMOGLOBIN 14.2 g/dl (12.0-15.5); IMMATURE GRANULOCYTE % 0.4 % (0-3.0); LYMPH # 2.3 10^3/uL (1.5-4.5); LYMPH % 31.8 % (24.0-44.0); MEAN CORPUSCULAR HEMOGLOBIN 30.5 pg (27.0-33.0); MEAN CORPUSCULAR HGB CONC 33.3 g/dl (32.0-36.5); MEAN CORPUSCULAR VOLUME 91.4 fl (80.0-96.0); MONO # 0.5 10^3/uL (0.0-0.8); MONO % 6.3 % (0.0-5.0); NEUTROPHILS # 4.3 10^3/uL (1.8-7.7); NEUTROPHILS % 59.8 % (36.0-66.0); PLATELET COUNT, AUTOMATED 255 10^3/uL (150-450); RED BLOOD COUNT 4.66 10^6/uL (4.00-5.40); RED CELL DISTRIBUTION WIDTH 12.8 % (11.5-14.5); WHITE BLOOD COUNT 7.2 10^3/uL (4.0-10.0)
[2017-10-16 19:40] LABS: ANION GAP 8 MEQ/L (8-16); BLOOD UREA NITROGEN 11 MG/DL (7-18); CARBON DIOXIDE LEVEL 30 MEQ/L (21-32); CHLORIDE LEVEL 103 MEQ/L (98-107); CPK CREATINE PHOSPHOKINASE 76 U/L (26-192); CREATININE FOR GFR 0.84 MG/DL (0.55-1.30); GLOMERULAR FILTRATION RATE > 60.0 (>60); GLUCOSE, FASTING 115 MG/DL (70-100); POTASSIUM SERUM 4.1 MEQ/L (3.5-5.1); SODIUM LEVEL 141 MEQ/L (136-145); TROPONIN I < 0.02 NG/ML (< 0.10)
[2017-10-16 19:45] LABS: CK-MB VALUE MASS < 1.0 NG/ML (<3.6); MB/CK RELATIVE INDEX 1.31 (< OR =4)
== END 2017-10-16 20:02 | disposition home or self-care (01) ==
LOC: M ED 18:30
DX: T43.215A Adverse effect of selective serotonin and norepinephrine reuptake inhibitors, initial encounter (principal); Y92.9 Unspecified place or not applicable; Y93.9 Activity, unspecified; F41.9 Anxiety disorder, unspecified; K21.9 Gastro-esophageal reflux disease without esophagitis; Z79.899 Other long term (current) drug therapy; Z88.0 Allergy status to penicillin
CPT/HCPCS: 71046

== ENCOUNTER → 2018-02-21 | Outpatient (REF) | payer OTHER ==
[~2018-02-21] MED LIST changes: +FLON1SPR NARES; +NAPR-885 PO; -NAPR500T3 PO; +RANI1SYP PO; +VENL37.598; +XANA0.25 PO
[2018-02-21 10:47] LABS: HEMATOCRIT 41.6 % (36.0-47.0); HEMOGLOBIN 13.9 g/dl (12.0-15.5); MEAN CORPUSCULAR HEMOGLOBIN 29.9 pg (27.0-33.0); MEAN CORPUSCULAR HGB CONC 33.4 g/dl (32.0-36.5); MEAN CORPUSCULAR VOLUME 89.5 fl (80.0-96.0); PLATELET COUNT, AUTOMATED 241 10^3/uL (150-450); RED BLOOD COUNT 4.65 10^6/uL (4.00-5.40)
[2018-02-21 11:01] LABS: ALBUMIN 3.8 GM/DL (3.2-5.2); ALT/SGPT 17 U/L (12-78); BILIRUBIN,TOTAL 0.5 MG/DL (0.2-1.0); BLOOD UREA NITROGEN 9 MG/DL (7-18); CALCIUM LEVEL 8.6 MG/DL (8.5-10.1); CARBON DIOXIDE LEVEL 29 MEQ/L (21-32); CHLORIDE LEVEL 106 MEQ/L (98-107); CHOLESTEROL LEVEL 190 MG/DL (<200); CHOLESTEROL RISK RATIO 2.375 (<5); CREATININE FOR GFR 0.75 MG/DL (0.55-1.30); GLOMERULAR FILTRATION RATE > 60.0 (>60); GLUCOSE, FASTING 76 MG/DL (70-100); HDL CHOLESTEROL 80 MG/DL (>40); IRON (FE) 136 UG/DL (50-170); LDL CHOLESTEROL 95 MG/DL (<100); NON-HDL-C 110 MG/DL; PERCENT SATURATION 37.9 % (13.2-45.0); SODIUM LEVEL 141 MEQ/L (136-145); TOTAL IRON BINDING CAPACITY 359 UG/DL (250-450); TOTAL PROTEIN 6.9 GM/DL (6.4-8.2); TRIGLYCERIDES LEVEL 76 MG/DL (<150)
[2018-02-21 11:37] LABS: TOTAL 25(OH) VITAMIN D 28.7 NG/ML (30.0-100.0)
[2018-02-21 11:38] LABS: HEMOGLOBIN A1c 5.1 %
== END ==
LOC: M LABDRAW1 09:27
PROVIDERS: ATTEND Family Medicine
DX: D64.9 Anemia, unspecified (principal); R53.83 Other fatigue; E03.9 Hypothyroidism, unspecified

== ENCOUNTER → 2019-04-03 | Outpatient (REF) | payer OTHER ==
[~2019-04-03] MED LIST changes: -LORA0.5T11 PO; +LORA0.5T5 PO
[2019-04-03 13:08] LABS: HEMATOCRIT 43.4 % (36.0-47.0); MEAN CORPUSCULAR HEMOGLOBIN 29.8 pg (27.0-33.0); MEAN CORPUSCULAR HGB CONC 32.3 g/dl (32.0-36.5); MEAN CORPUSCULAR VOLUME 92.3 fl (80.0-96.0); PLATELET COUNT, AUTOMATED 263 10^3/uL (150-450); WHITE BLOOD COUNT 4.5 10^3/uL (4.0-10.0)
[2019-04-03 13:19] LABS: ALT/SGPT 27 U/L (12-78); BILIRUBIN,TOTAL 0.5 MG/DL (0.2-1.0); BLOOD UREA NITROGEN 13 MG/DL (7-18); CALCIUM LEVEL 8.7 MG/DL (8.5-10.1); CARBON DIOXIDE LEVEL 31 MEQ/L (21-32); CHLORIDE LEVEL 106 MEQ/L (98-107); CHOLESTEROL LEVEL 209 MG/DL (<200); CHOLESTEROL RISK RATIO 2.518 (<5); GLOMERULAR FILTRATION RATE > 60.0 (>60); GLUCOSE, FASTING 80 MG/DL (70-100); HDL CHOLESTEROL 83 MG/DL (>40); IRON (FE) 99 UG/DL (50-170); LDL CHOLESTEROL 112 MG/DL (<100); NON-HDL-C 126 MG/DL; PERCENT SATURATION 32.9 % (13.2-45.0); POTASSIUM SERUM 4.4 MEQ/L (3.5-5.1); SODIUM LEVEL 141 MEQ/L (136-145); THYROXINE (T4) 9.1 UG/DL (4.5-12.0); TOTAL IRON BINDING CAPACITY 301 UG/DL (250-450); TOTAL PROTEIN 6.9 GM/DL (6.4-8.2); TRIGLYCERIDES LEVEL 72 MG/DL (<150)
[2019-04-03 13:21] LABS: TOTAL 25(OH) VITAMIN D 31.4 NG/ML (30.0-100.0)
[2019-04-03 13:22] LABS: TOTAL T3 110.5 NG/DL (60.0-181.0)
[2019-04-03 13:23] LABS: VITAMIN B12 LEVEL 231 PG/ML (247-911)
== END ==
LOC: M LABDRAW1 12:08
PROVIDERS: ATTEND Family Medicine
DX: D64.9 Anemia, unspecified (principal); R53.83 Other fatigue; E03.9 Hypothyroidism, unspecified

== ENCOUNTER → 2019-10-05 | Outpatient (CLI) | payer OTHER ==
[2019-10-05 13:51] LABS: HEMATOCRIT 41.2 % (36.0-47.0); HEMOGLOBIN 13.5 g/dl (12.0-15.5); MEAN CORPUSCULAR HEMOGLOBIN 29.7 pg (27.0-33.0); MEAN CORPUSCULAR HGB CONC 32.8 g/dl (32.0-36.5); MEAN CORPUSCULAR VOLUME 90.7 fl (80.0-96.0); PLATELET COUNT, AUTOMATED 239 10^3/uL (150-450); RED BLOOD COUNT 4.54 10^6/uL (4.00-5.40); WHITE BLOOD COUNT 4.6 10^3/uL (4.0-10.0)
[2019-10-05 14:21] LABS: ALBUMIN 3.7 GM/DL (3.2-5.2); ALT/SGPT 17 U/L (12-78); BILIRUBIN,TOTAL 0.5 MG/DL (0.2-1.0); BLOOD UREA NITROGEN 12 MG/DL (7-18); CALCIUM LEVEL 8.8 MG/DL (8.5-10.1); CARBON DIOXIDE LEVEL 27 MEQ/L (21-32); CHLORIDE LEVEL 107 MEQ/L (98-107); CHOLESTEROL LEVEL 185 MG/DL (<200); CHOLESTEROL RISK RATIO 2.312 (<5); CREATININE FOR GFR 0.58 MG/DL (0.55-1.30); FREE T3 3.2 PG/ML (2.2-4.0); FREE T4 0.96 NG/DL (0.76-1.46); GLOMERULAR FILTRATION RATE > 60.0 (>60); GLUCOSE, FASTING 68 MG/DL (70-100); HDL CHOLESTEROL 80 MG/DL (>40); LDL CHOLESTEROL 94 MG/DL (<100); NON-HDL-C 105 MG/DL; POTASSIUM SERUM 4.5 MEQ/L (3.5-5.1); SODIUM LEVEL 139 MEQ/L (136-145); TOTAL PROTEIN 6.7 GM/DL (6.4-8.2); TRIGLYCERIDES LEVEL 54 MG/DL (<150)
[2019-10-05 20:56] LABS: HEMOGLOBIN A1c 5.1 %
== END ==
LOC: M WUC 08:13
PROVIDERS: ATTEND Family Medicine
DX: D64.9 Anemia, unspecified (principal); R53.83 Other fatigue; E03.9 Hypothyroidism, unspecified

== ENCOUNTER → 2020-05-22 | Outpatient (REF) | payer OTHER ==
[2020-05-22 18:22] LABS: APPEARANCE, URINE HAZY (CLEAR); BACTERIA, URINE AUTO NEGATIVE (NEGATIVE); BILIRUBIN, URINE AUTO NEGATIVE (NEGATIVE); BLOOD, URINE BLOOD NEGATIVE (NEGATIVE); COLOR, URINE YELLOW (YELLOW); GLUCOSE, URINE (UA) AUTO NEGATIVE (NEGATIVE); KETONE, URINE AUTO NEGATIVE (NEGATIVE); LEUKOCYTE ESTERASE, URINE AUTO 2+ (NEGATIVE); MUCUS, URINE SMALL (NEGATIVE); NITRITE, URINE AUTO NEGATIVE (NEGATIVE); PROTEIN, URINE AUTO NEGATIVE (NEGATIVE); RBC, URINE AUTO 1 /HPF (0-3); SPECIFIC GRAVITY URINE AUTO 1.014 (1.002-1.035); SQUAMOUS EPITHELIAL CELL UR AU 5 /HPF (0-6); UROBILINOGEN, URINE AUTO 0.2 mg/dL (0.0-2.0); WBC, URINE AUTO 8 /HPF (0-3)
== END ==
LOC: M LAB REF 16:52
PROVIDERS: ATTEND Physician Assistant Medical
DX: N39.0 Urinary tract infection, site not specified (principal)

== ENCOUNTER → 2020-08-16 | Outpatient (CLI) | payer OTHER ==
[2020-08-16 09:46] LABS: HEMOGLOBIN 14.5 g/dl (12.0-15.5); MEAN CORPUSCULAR HEMOGLOBIN 29.9 pg (27.0-33.0); MEAN CORPUSCULAR VOLUME 90.7 fl (80.0-96.0); PLATELET COUNT, AUTOMATED 224 10^3/uL (150-450); RED BLOOD COUNT 4.85 10^6/uL (4.00-5.40); WHITE BLOOD COUNT 5.3 10^3/uL (4.0-10.0)
[2020-08-16 10:02] LABS: HEMOGLOBIN A1c 5.2 %
[2020-08-16 10:53] LABS: ALBUMIN 4.2 GM/DL (3.2-5.2); ALT/SGPT 16 U/L (12-78); BILIRUBIN,TOTAL 0.5 MG/DL (0.2-1.0); BLOOD UREA NITROGEN 13 MG/DL (7-18); CARBON DIOXIDE LEVEL 31 MEQ/L (21-32); CHLORIDE LEVEL 104 MEQ/L (98-107); CHOLESTEROL LEVEL 211 MG/DL (<200); CHOLESTEROL RISK RATIO 2.425 (<5); CREATININE FOR GFR 0.62 MG/DL (0.55-1.30); GLOMERULAR FILTRATION RATE > 60.0 (>60); GLUCOSE, FASTING 83 MG/DL (70-100); HDL CHOLESTEROL 87 MG/DL (>40); IRON (FE) 93 UG/DL (50-170); LDL CHOLESTEROL 112 MG/DL (<100); NON-HDL-C 124 MG/DL; PERCENT SATURATION 28.1 % (13.2-45.0); POTASSIUM SERUM 4.5 MEQ/L (3.5-5.1); SODIUM LEVEL 137 MEQ/L (136-145); TOTAL 25(OH) VITAMIN D 38.7 NG/ML (30.0-100.0); TOTAL IRON BINDING CAPACITY 331 UG/DL (250-450); TOTAL PROTEIN 7.3 GM/DL (6.4-8.2); TRIGLYCERIDES LEVEL 58 MG/DL (<150)
--- NOTE | 2020-08-16 16:24 | REP ---
INDICATION: ANEMIC *LABS 1ST, EKG 2ND, XR 3RD* COMPARISON: 10/16/2017 TECHNIQUE: PA and lateral. FINDINGS: The mediastinum and cardiac silhouette are normal. The lung green are clear and without acute consolidation, effusion, or pneumothorax. The skeletal structures are intact and normal. IMPRESSION: No acute cardiopulmonary process. <Electronically signed by Cj Mata > 08/16/20 [id number]
--- NOTE | 2020-08-17 09:51 | ECGEPIP ---
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 No significant change compared with 10/16/2017. Electronically Signed on 08-17-2020 9:50:58 EDT by Maximus Flores
== END ==
LOC: M LAB 08:13
PROVIDERS: ATTEND Family Medicine
DX: D64.9 Anemia, unspecified (principal); R53.83 Other fatigue; E03.9 Hypothyroidism, unspecified

== ENCOUNTER → 2020-10-17 | Outpatient (REF) | payer OTHER ==
[2020-10-17 22:03] LABS: APPEARANCE, URINE HAZY (CLEAR); BACTERIA, URINE AUTO 1+ (NEGATIVE); BILIRUBIN, URINE AUTO NEGATIVE (NEGATIVE); BLOOD, URINE BLOOD NEGATIVE (NEGATIVE); COLOR, URINE YELLOW (YELLOW); GLUCOSE, URINE (UA) AUTO NEGATIVE (NEGATIVE); KETONE, URINE AUTO NEGATIVE (NEGATIVE); LEUKOCYTE ESTERASE, URINE AUTO TRACE (NEGATIVE); MUCUS, URINE SMALL (NEGATIVE); NITRITE, URINE AUTO NEGATIVE (NEGATIVE); PROTEIN, URINE AUTO NEGATIVE (NEGATIVE); RBC, URINE AUTO 0 /HPF (0-3); SPECIFIC GRAVITY URINE AUTO 1.005 (1.002-1.035); SQUAMOUS EPITHELIAL CELL UR AU 5 /HPF (0-6); UROBILINOGEN, URINE AUTO 0.2 mg/dL (0.0-2.0); WBC, URINE AUTO 1 /HPF (0-3)
== END ==
LOC: M LAB REF 21:43
PROVIDERS: ATTEND Physician Assistant Medical
DX: R10.9 Unspecified abdominal pain (principal)

== ENCOUNTER → 2021-02-18 | Outpatient (CLI) | payer OTHER ==
[2021-02-18 10:25] LABS: HEMATOCRIT 41.2 % (36.0-47.0); HEMOGLOBIN 13.2 g/dl (12.0-15.5); MEAN CORPUSCULAR HEMOGLOBIN 29.5 pg (27.0-33.0); MEAN CORPUSCULAR VOLUME 92.2 fl (80.0-96.0); PLATELET COUNT, AUTOMATED 254 10^3/uL (150-450); RED BLOOD COUNT 4.47 10^6/uL (4.00-5.40); WHITE BLOOD COUNT 5.1 10^3/uL (4.0-10.0)
[2021-02-18 11:04] LABS: ALBUMIN 3.8 GM/DL (3.2-5.2); ALT/SGPT 23 U/L (12-78); BILIRUBIN,TOTAL 0.6 MG/DL (0.2-1.0); BLOOD UREA NITROGEN 10 MG/DL (7-18); CARBON DIOXIDE LEVEL 31 MEQ/L (21-32); CHLORIDE LEVEL 104 MEQ/L (98-107); CHOLESTEROL LEVEL 185 MG/DL (<200); CHOLESTEROL RISK RATIO 2.055 (<5); CREATININE FOR GFR 0.68 MG/DL (0.55-1.30); GLOMERULAR FILTRATION RATE > 60.0 (>60); GLUCOSE, FASTING 83 MG/DL (70-100); HDL CHOLESTEROL 90 MG/DL (>40); LDL CHOLESTEROL 86 MG/DL (<100); NON-HDL-C 95 MG/DL; SODIUM LEVEL 139 MEQ/L (136-145); TOTAL PROTEIN 6.7 GM/DL (6.4-8.2); TRIGLYCERIDES LEVEL 47 MG/DL (<150)
[2021-02-18 11:05] LABS: TOTAL 25(OH) VITAMIN D 22.6 NG/ML (30.0-100.0)
== END ==
LOC: M WUC 08:04
PROVIDERS: ATTEND Family Medicine
DX: D64.9 Anemia, unspecified (principal); R53.83 Other fatigue; E03.9 Hypothyroidism, unspecified

== ENCOUNTER → 2022-02-16 | Outpatient (CLI) | payer BC ==
[~2022-02-16] MED LIST changes: -CEFD1CAP8 PO; +CEFD300C41 PO
[2022-02-16 09:14] LABS: HEMATOCRIT 43.5 % (36.0-47.0); HEMOGLOBIN 13.7 g/dl (12.0-15.5); MEAN CORPUSCULAR HEMOGLOBIN 29.1 pg (27.0-33.0); MEAN CORPUSCULAR HGB CONC 31.5 g/dl (32.0-36.5); MEAN CORPUSCULAR VOLUME 92.6 fl (80.0-96.0); PLATELET COUNT, AUTOMATED 262 10^3/uL (150-450); WHITE BLOOD COUNT 5.5 10^3/uL (4.0-10.0)
[2022-02-16 09:32] LABS: ALBUMIN 3.9 G/DL (3.2-5.2); ALKALINE PHOSPHATASE 115 U/L (46-116); ALT/SGPT 12 U/L (7.0-40); AST/SGOT 17 U/L (<34); BILIRUBIN,TOTAL 0.5 MG/DL (0.3-1.2); BLOOD UREA NITROGEN 12 MG/DL (9-23); CALCIUM LEVEL 8.9 MG/DL (8.5-10.1); CARBON DIOXIDE LEVEL 26 MMOL/L (20-31); CHLORIDE LEVEL 102 MMOL/L (98-107); CHOLESTEROL LEVEL 181 MG/DL (<200); CHOLESTEROL RISK RATIO 2.41 (<5); CREATININE FOR GFR 0.66 MG/DL (0.55-1.30); GLOMERULAR FILTRATION RATE > 60.0 (>60); GLUCOSE, FASTING 81 MG/DL (60-100); NON-HDL-C 106 MG/DL; POTASSIUM SERUM 4.7 MMOL/L (3.5-5.1); SODIUM LEVEL 138 MMOL/L (136-145); TRIGLYCERIDES LEVEL 75 MG/DL (<150)
[2022-02-16 09:33] LABS: THYROID STIMULATING HORMONE 1.726 uIU/ML (0.55-4.78)
[2022-02-16 09:34] LABS: TOTAL 25(OH) VITAMIN D 42.3 NG/ML (20.0-100.0)
[2022-02-16 09:54] LABS: HEMOGLOBIN A1c 4.8 % (4.0-6.0)
== END ==
LOC: M LAB 08:28
PROVIDERS: ATTEND Family Medicine
DX: I10 Essential (primary) hypertension (principal); R53.83 Other fatigue

== ENCOUNTER → 2022-08-20 | Outpatient (CLI) | payer BC ==
[2022-08-20 08:50] LABS: HEMATOCRIT 43.4 % (36.0-47.0); HEMOGLOBIN 13.8 g/dl (12.0-15.5); MEAN CORPUSCULAR HEMOGLOBIN 28.9 pg (27.0-33.0); MEAN CORPUSCULAR HGB CONC 31.8 g/dl (32.0-36.5); MEAN CORPUSCULAR VOLUME 90.8 fl (80.0-96.0); PLATELET COUNT, AUTOMATED 238 10^3/uL (150-450); RED BLOOD COUNT 4.78 10^6/uL (4.00-5.40); WHITE BLOOD COUNT 6.1 10^3/uL (4.0-10.0)
[2022-08-20 09:22] LABS: TOTAL IRON BINDING CAPACITY 333 UG/DL (250-425)
[2022-08-20 09:23] LABS: ALBUMIN 4.1 G/DL (3.2-5.2); ALKALINE PHOSPHATASE 115 U/L (46-116); ALT/SGPT < 9 U/L (7.0-40); AST/SGOT < 8 U/L (<34); BILIRUBIN,TOTAL 0.6 MG/DL (0.3-1.2); BLOOD UREA NITROGEN 11 MG/DL (9-23); CALCIUM LEVEL 8.7 MG/DL (8.5-10.1); CARBON DIOXIDE LEVEL 28 MMOL/L (20-31); CHLORIDE LEVEL 106 MMOL/L (98-107); CHOLESTEROL LEVEL 203 MG/DL (<200); CREATININE FOR GFR 0.56 MG/DL (0.55-1.30); GLOMERULAR FILTRATION RATE > 60.0 (>60); GLUCOSE, FASTING 82 MG/DL (60-100); HDL CHOLESTEROL 81.1 MG/DL (>40); IRON (FE) 83 UG/DL (50-170); LDL CHOLESTEROL 106.1 MG/DL (<100); NON-HDL-C 121.9 MG/DL; PERCENT SATURATION 24.9 % (13.2-45.0); POTASSIUM SERUM 4.3 MMOL/L (3.5-5.1); SODIUM LEVEL 140 MMOL/L (136-145); TRIGLYCERIDES LEVEL 79 MG/DL (<150)
[2022-08-20 09:25] LABS: THYROID STIMULATING HORMONE 1.297 uIU/ML (0.55-4.78); TOTAL 25(OH) VITAMIN D 34.3 NG/ML (20.0-100.0)
[2022-08-20 09:42] LABS: HEMOGLOBIN A1c 5.1 % (4.0-6.0)
== END ==
LOC: M LAB 08:19
PROVIDERS: ATTEND Family Medicine
DX: D64.9 Anemia, unspecified (principal); R53.83 Other fatigue; E03.9 Hypothyroidism, unspecified

== ENCOUNTER → 2022-12-02 | Outpatient (REF) | payer BC ==
[~2022-12-02] MED LIST changes: -CEFD300C41 PO; +CEFD300C42 PO
== END ==
LOC: M SFHCWAGY 09:50
PROVIDERS: ATTEND Nurse Practitioner Family
DX: Z12.4 Encounter for screening for malignant neoplasm of cervix (principal)
CPT/HCPCS: 87624; G0123

== ENCOUNTER → 2023-05-09 | Outpatient (CLI) | payer BC ==
[~2023-05-09] MED LIST changes: +CEFD1CAP9 PO; -CEFD300C42 PO
[2023-05-09 08:48] LABS: HEMATOCRIT 44.6 % (36.0-47.0); HEMOGLOBIN 14.7 g/dl (12.0-15.5); MEAN CORPUSCULAR HEMOGLOBIN 29.8 pg (27.0-33.0); MEAN CORPUSCULAR VOLUME 90.5 fl (80.0-96.0); PLATELET COUNT, AUTOMATED 226 10^3/uL (150-450); RED BLOOD COUNT 4.93 10^6/uL (4.00-5.40); WHITE BLOOD COUNT 5.6 10^3/uL (4.0-10.0)
[2023-05-09 09:06] LABS: ALBUMIN 3.8 G/DL (3.2-5.2); ALKALINE PHOSPHATASE 141 U/L (46-116); ALT/SGPT 13 U/L (7.0-40); AST/SGOT 23 U/L (<34); BILIRUBIN,TOTAL 0.7 MG/DL (0.3-1.2); BLOOD UREA NITROGEN 11 MG/DL (9-23); CALCIUM LEVEL 8.7 MG/DL (8.5-10.1); CARBON DIOXIDE LEVEL 28 MMOL/L (20-31); CHLORIDE LEVEL 104 MMOL/L (98-107); CHOLESTEROL LEVEL 162 MG/DL (<200); CHOLESTEROL RISK RATIO 2.52 (<5); CREATININE FOR GFR 0.68 MG/DL (0.55-1.30); GLOMERULAR FILTRATION RATE > 60.0 (>60); GLUCOSE, FASTING 81 MG/DL (60-100); HDL CHOLESTEROL 64.1 MG/DL (>40); IRON (FE) 86 UG/DL (50-170); LDL CHOLESTEROL 85.3 MG/DL (<100); NON-HDL-C 97.9 MG/DL; PERCENT SATURATION 26.9 % (13.2-45.0); POTASSIUM SERUM 4.3 MMOL/L (3.5-5.1); SODIUM LEVEL 136 MMOL/L (136-145); TOTAL IRON BINDING CAPACITY 320 UG/DL (250-425); TOTAL PROTEIN 6.8 G/DL (5.7-8.2); TRIGLYCERIDES LEVEL 63 MG/DL (<150)
[2023-05-09 09:07] LABS: TOTAL 25(OH) VITAMIN D 49.3 NG/ML (20.0-100.0)
[2023-05-09 09:08] LABS: THYROID STIMULATING HORMONE 1.633 uIU/ML (0.55-4.78)
== END ==
LOC: M LAB 08:03
PROVIDERS: ATTEND Family Medicine
DX: D64.9 Anemia, unspecified (principal); R53.83 Other fatigue; E03.9 Hypothyroidism, unspecified

== ENCOUNTER → 2023-12-07 | Outpatient (CLI) | payer BC | LOC: M WHC 08:36 | PROVIDERS: ATTEND Nurse Practitioner Family | DX: Z12.31 Encounter for screening mammogram for malignant neoplasm of breast (principal); R92.8 Other abnormal and inconclusive findings on diagnostic imaging of breast; R92.313 Mammographic fatty tissue density, bilateral breasts ==

== ENCOUNTER → 2023-12-28 | Outpatient (CLI) | payer BC | LOC: M WHC 11:08 | PROVIDERS: ATTEND Nurse Practitioner Family | DX: N63.42 Unspecified lump in left breast, subareolar (principal) | CPT/HCPCS: 76642; 77065; G0279 ==

== ENCOUNTER → 2024-01-18 | Outpatient (CLI) | payer BC | LOC: M WHC 14:15 | PROVIDERS: ATTEND Nurse Practitioner Family | DX: R92.8 Other abnormal and inconclusive findings on diagnostic imaging of breast (principal); Z53.9 Procedure and treatment not carried out, unspecified reason ==

== ENCOUNTER → 2024-03-05 | Outpatient (CLI) | payer BC ==
[2024-03-05 08:44] LABS: HEMATOCRIT 40.5 % (36.0-47.0); HEMOGLOBIN 13.5 g/dl (12.0-15.5); MEAN CORPUSCULAR HEMOGLOBIN 30.4 pg (27.0-33.0); MEAN CORPUSCULAR HGB CONC 33.3 g/dl (32.0-36.5); MEAN CORPUSCULAR VOLUME 91.2 fl (80.0-96.0); PLATELET COUNT, AUTOMATED 244 10^3/uL (150-450); RED BLOOD COUNT 4.44 10^6/uL (4.00-5.40); WHITE BLOOD COUNT 5.4 10^3/uL (4.0-10.0)
[2024-03-05 09:15] LABS: IRON (FE) 95 UG/DL (50-170); PERCENT SATURATION 31.1 % (13.2-45.0); TOTAL IRON BINDING CAPACITY 305 UG/DL (250-425)
[2024-03-05 09:16] LABS: ALKALINE PHOSPHATASE 121 U/L (35-104); ALT/SGPT 13 U/L (7.0-40); AST/SGOT 15 U/L (<34); BILIRUBIN,TOTAL 0.7 MG/DL (0.3-1.2); BLOOD UREA NITROGEN 8 MG/DL (9-23); CALCIUM LEVEL 9.1 MG/DL (8.5-10.1); CARBON DIOXIDE LEVEL 30 MMOL/L (20-31); CHLORIDE LEVEL 105 MMOL/L (98-107); CHOLESTEROL LEVEL 174 MG/DL (<200); CHOLESTEROL RISK RATIO 2.54 (<5); CREATININE FOR GFR 0.71 MG/DL (0.55-1.30); GLOMERULAR FILTRATION RATE > 60.0 (>58); GLUCOSE, FASTING 88 MG/DL (60-100); HDL CHOLESTEROL 68.3 MG/DL (>40); LDL CHOLESTEROL 95.1 MG/DL (<100); NON-HDL-C 105.7 MG/DL; POTASSIUM SERUM 4.2 MMOL/L (3.5-5.1); SODIUM LEVEL 141 MMOL/L (136-145); TOTAL PROTEIN 6.9 G/DL (5.7-8.2); TRIGLYCERIDES LEVEL 53 MG/DL (<150)
[2024-03-05 09:18] LABS: THYROID STIMULATING HORMONE 1.092 uIU/ML (0.55-4.78); TOTAL 25(OH) VITAMIN D 31.5 NG/ML (20.0-100.0)
[2024-03-05 09:57] LABS: HEMOGLOBIN A1c 4.8 % (4.0-6.0)
== END ==
LOC: M LAB 08:08
PROVIDERS: ATTEND Family Medicine
DX: D64.9 Anemia, unspecified (principal); R53.83 Other fatigue; E03.9 Hypothyroidism, unspecified

== ENCOUNTER → 2024-10-17 | Outpatient (CLI) | payer BC ==
[~2024-10-17] MED LIST changes: -IBUP-1022 PO; +IBUP600T42 PO
== END ==
LOC: M WHC 07:52
PROVIDERS: ATTEND Nurse Practitioner Family
DX: R92.8 Other abnormal and inconclusive findings on diagnostic imaging of breast (principal); R92.323 Mammographic fibroglandular density, bilateral breasts
CPT/HCPCS: 77066; G0279